=== PATIENT | female | born 1965 | race Caucasian/White ===

== ENCOUNTER → 2025-02-16 14:31 | Outpatient (REF) | payer BC, SELFPAY | LOC: RAD 14:31 | PROVIDERS: ATTENDING PHYSICIAN Physician Assistant Medical | DX: R07.89 Other chest pain (principal); R06.02 Shortness of breath | CPT/HCPCS: 71250 ==

== ENCOUNTER → 2025-04-11 09:17 | Outpatient (REF) | payer BC, SELFPAY | LOC: RAD 09:17 | PROVIDERS: ATTENDING PHYSICIAN Family Medicine | DX: N95.9 Unspecified menopausal and perimenopausal disorder (principal); E55.9 Vitamin D deficiency, unspecified | CPT/HCPCS: 77080 ==